=== PATIENT | female | born 1985 ===

== ENCOUNTER 2020-04-11 06:42 | Day surgery (SDC) | payer OTHER ==
[2020-04-11] MEDS ORDERED: PERCOCET 5-3251 EACH PO (13:33)
[2020-04-11] MEDS ORDERED: KETO10TA2 PO (13:34)
[2020-04-11] MEDS ORDERED: NEURONTIN300 MG PO (13:34)
== END 2020-04-11 17:40 | disposition home or self-care (01) ==
LOC: CIR.AMB 06:42
PROVIDERS: ATTEND Surgery
DX: K64.4 Residual hemorrhoidal skin tags (principal); Z20.828 Contact with and (suspected) exposure to other viral communicable diseases

== ENCOUNTER 2021-07-03 05:52 | Day surgery (SDC) | payer OTHER ==
[~2021-07-03 05:52] MED LIST: KETO10TA2 PO; NEURONTIN300 MG PO; PERCOCET 5-3251 EACH PO
[2021-07-03] MEDS ORDERED: KETO10TA2 PO (09:04)
[2021-07-03] MEDS ORDERED: HYFIBER WI12 GM/302 PO (09:04)
[2021-07-03] MEDS ORDERED: PERCOCET 5-3251 EACH PO (09:04)
[2021-07-03] MEDS ORDERED: DERMOPLAST PAIN78 GM TOP (09:05)
== END 2021-07-03 15:32 | disposition home or self-care (01) ==
LOC: CIR.AMB 05:52
PROVIDERS: ATTEND Surgery
DX: K64.5 Perianal venous thrombosis (principal)